=== PATIENT | female | born 1980 | race Caucasian/White ===

== ENCOUNTER 2024-11-20 02:18 | Emergency (ER) | payer MEDICAID ==
[~2024-11-20] VITALS: Ht 154.9 cm; Wt 87.0 kg
[2024-11-20 03:41] LABS: EOSINOPHILS # (AUTO) 0.1 X10'3 (0-0.9); LYMPHOCYTES # (AUTO) 2.6 X10'3 (1.1-4.8); MEAN PLATELET VOLUME 7.2 FL (7.4-10.4)
[2024-11-20 03:43] LABS: BASOPHILS # (AUTO) 0.2 X10'3 (0-0.2); BASOPHILS % (AUTO) 2.1 % (0-1); EOSINOPHILS % (AUTO) 0.9 % (0-6); MEAN CORPUSCULAR HEMOGLOBIN 19.4 PG (27.0-31.0); MEAN CORPUSCULAR HGB CONC 28.7 g/dL (33.0-36.5); MEAN CORPUSCULAR VOLUME 67.4 FL (78-98); MONOCYTES # (AUTO) 0.7 X10'3 (0-0.9); MONOCYTES % (AUTO) 8.5 % (2-12); NEUTROPHILS # (AUTO) 4.7 X10'3 (1.8-7.7); NEUTROPHILS % (AUTO) 57.5 % (42-75); PLATELET COUNT 612 X10'3 (140-440); RED CELL DISTRIBUTION WIDTH 24.7 % (11.5-14.5); WHITE BLOOD COUNT 8.3 X10'3 (4.5-11.0)
[2024-11-20 03:55] LABS: ALBUMIN 3.2 G/DL (3.4-5.0); ANION GAP 7 (8-16); BLOOD UREA NITROGEN 18 MG/DL (7-18); BUN/CREATININE RATIO 27.7 (10.0-20.0); CALCIUM 8.9 MG/DL (8.5-10.1); CHLORIDE 104 MMOL/L (99-107); CREATININE 0.65 MG/DL (0.40-0.90); GLUCOSE 109 MG/DL (70-104); HEMATOCRIT 20.9 % (35.0-45.0); SODIUM 140 MMOL/L (135-145); TOTAL CARBON DIOXIDE 28.9 MMOL/L (24-32); eCRCL 85 ML/MIN; eGFR > 90 ML/MIN
[2024-11-20 03:56] LABS: HCG SERUM QL NEGATIVE
[2024-11-20] MEDS ORDERED: NORG1TAB67 PO (04:07)
[2024-11-20 04:17] LABS: HYPOCHROMASIA 2+; PLATELET ESTIMATE INCREASED; POIKILOCYTOSIS 1+; POLYCHROMASIA FEW
[2024-11-20 04:18] LABS: ANISOCYTOSIS 2+; MICROCYTOSIS 2+; STOMATOCYTES 1+
[2024-11-20 05:27] VITALS: BP 106/49; PULSE 89; RESP 16; TEMP 98.8
[2024-11-20 05:45] VITALS: BP 117/59; PULSE 90; RESP 16; TEMP 98.8
[2024-11-20 06:00] VITALS: BP 115/67; PULSE 89; RESP 18; TEMP 98.7
[2024-11-20 06:30] VITALS: BP 96/63; PULSE 78; RESP 16; TEMP 98.8
[2024-11-20 09:07] VITALS: BP 96/63; PULSE 77; RESP 18; TEMP 98.8; O2SAT 98
== END 2024-11-20 09:09 | disposition home or self-care (01) ==
LOC: ER 02:19
DX: D64.89 Other specified anemias (principal); N92.0 Excessive and frequent menstruation with regular cycle; Z88.8 Allergy status to other drugs, medicaments and biological substances; Z79.899 Other long term (current) drug therapy
CPT/HCPCS: 36415; 36430; 80048; 84703; 85008; 85025; 86885; 86900; 86901; 86920; 93005; 99291; J7040; P9016

== ENCOUNTER 2024-12-19 01:39 | Emergency (ER) | payer MEDICAID ==
[~2024-12-19] VITALS: Ht 152.4 cm; Wt 77.3 kg
[~2024-12-19 01:39] MED LIST: NORG1TAB67 PO
[2024-12-19 01:42] VITALS: BP 121/73; PULSE 110; RESP 18; O2SAT 98
[2024-12-19 04:25] LABS: BASOPHILS # (AUTO) 0.2 X10'3 (0-0.2); BASOPHILS % (AUTO) 1.7 % (0-1); EOSINOPHILS # (AUTO) 0.1 X10'3 (0-0.9); EOSINOPHILS % (AUTO) 1.4 % (0-6); HEMATOCRIT 24.3 % (35.0-45.0); HEMOGLOBIN 7.3 g/dl (12.0-16.0); LYMPHOCYTES # (AUTO) 1.9 X10'3 (1.1-4.8); MEAN CORPUSCULAR HEMOGLOBIN 21.8 PG (27.0-31.0); MEAN CORPUSCULAR HGB CONC 30.2 g/dL (33.0-36.5); MEAN CORPUSCULAR VOLUME 72.1 FL (78-98); MEAN PLATELET VOLUME 7.6 FL (7.4-10.4); MONOCYTES # (AUTO) 0.8 X10'3 (0-0.9); MONOCYTES % (AUTO) 8.5 % (2-12); NEUTROPHILS # (AUTO) 6.5 X10'3 (1.8-7.7); NEUTROPHILS % (AUTO) 68.4 % (42-75); PLATELET COUNT 492 X10'3 (140-440); RED BLOOD COUNT 3.37 X10'6 (4.20-5.60); RED CELL DISTRIBUTION WIDTH 24.7 % (11.5-14.5); WHITE BLOOD COUNT 9.5 X10'3 (4.5-11.0)
[2024-12-19 04:36] LABS: ALBUMIN 3.5 G/DL (3.4-5.0); ANION GAP 7 (8-16); BLOOD UREA NITROGEN 18 MG/DL (7-18); BUN/CREATININE RATIO 29.5 (10.0-20.0); CALCIUM 8.8 MG/DL (8.5-10.1); CHLORIDE 105 MMOL/L (99-107); CREATININE 0.61 MG/DL (0.40-0.90); GLUCOSE 95 MG/DL (70-104); POTASSIUM 4.2 MMOL/L (3.5-5.1); SODIUM 139 MMOL/L (135-145); TOTAL CARBON DIOXIDE 27.3 MMOL/L (24-32); eCRCL 86 ML/MIN; eGFR > 90 ML/MIN
[2024-12-19 04:57] LABS: BILIRUBIN,URINE NEGATIVE (Neg); CLARITY,URINE SLIGHTLY CLOUDY (Clear); COLOR,URINE YELLOW (Yellow); GLUCOSE, URINE NEGATIVE (Neg); KETONES,URINE NEGATIVE (Neg); LEUKOCYTE ESTERASE ,URINE TRACE (Neg); NITRITES, URINE POSITIVE (Neg); OCCULT BLOOD,URINE NEGATIVE (Neg); PROTEIN,URINE NEGATIVE (Neg); UROBILINOGEN,URINE 0.2 E.U/dL (0.2-1.0)
[2024-12-19 04:58] LABS: URINE HCG NEGATIVE (NEG)
[2024-12-19 05:06] LABS: ANISOCYTOSIS 2+; HYPOCHROMASIA 2+; MICROCYTOSIS 1+; POIKILOCYTOSIS 1+; POLYCHROMASIA FEW; STOMATOCYTES 1+
[2024-12-19 05:08] LABS: BACTERIA,URINE 4+ /HPF (Neg); RBC,URINE NONE SEEN /HPF (0-2); SQUAMOUS EPITHELIAL CELL,UR FEW /LPF (FEW); UA COLLECTION TYPE CLN CATCH MIDSTREAM
[2024-12-19 05:12] VITALS: TEMP 98.9
[2024-12-19 11:56] LABS: URINE AMPHETAMINE SCREEN NEGATIVE (Neg); URINE BARBITUATE SCREEN NEGATIVE (Neg); URINE BENZODIAZEPINES SCREEN NEGATIVE (Neg); URINE CANNABINOID SCREEN POSITIVE (Neg); URINE COCAINE SCREEN NEGATIVE (Neg); URINE METHADONE SCREEN NEGATIVE (Neg); URINE OPIATE SCREEN NEGATIVE (Neg); URINE PHENCYCLIDINE SCREEN NEGATIVE (Neg)
== END 2024-12-19 05:17 | disposition home or self-care (01) ==
LOC: ER 01:40
DX: N92.0 Excessive and frequent menstruation with regular cycle (principal); D64.9 Anemia, unspecified; Z79.899 Other long term (current) drug therapy
CPT/HCPCS: 36415; 80048; 80305; 81001; 81025; 85008; 85025; 86885; 86900; 86901; 87077; 87088; 87186; 99283